=== PATIENT | male | born 1955 | race Caucasian/White ===

== ENCOUNTER → 2024-10-16 13:01 | Outpatient (BNVA) | payer OTHER, SELFPAY | PROVIDERS: Visit Provider Podiatrist Foot & Ankle Surgery | DX: M79.671 Pain in right foot (principal); M79.672 Pain in left foot; M77.41 Metatarsalgia, right foot; M77.42 Metatarsalgia, left foot; M20.21 Hallux rigidus, right foot; M20.22 Hallux rigidus, left foot; L60.3 Nail dystrophy; M79.89 Other specified soft tissue disorders | CPT/HCPCS: 73630; 99204 ==

== ENCOUNTER → 2024-10-22 14:47 | Outpatient (BNVA) | payer OTHER, SELFPAY | PROVIDERS: Visit Provider Internal Medicine Cardiovascular Disease | DX: R07.9 Chest pain, unspecified (principal); I44.0 Atrioventricular block, first degree; I45.0 Right fascicular block | CPT/HCPCS: 93005 ==

== ENCOUNTER → 2024-11-07 10:25 | Outpatient (BNVA) | payer OTHER, SELFPAY | PROVIDERS: Visit Provider Podiatrist Foot & Ankle Surgery | DX: M79.89 Other specified soft tissue disorders (principal); M79.672 Pain in left foot; M77.41 Metatarsalgia, right foot; M77.42 Metatarsalgia, left foot; M20.21 Hallux rigidus, right foot; M20.22 Hallux rigidus, left foot; L60.3 Nail dystrophy | CPT/HCPCS: J9999 ==

== ENCOUNTER 2024-11-22 09:47 | Outpatient (CLI) | payer OTHER, SELFPAY ==
--- NOTE | 2024-11-22 11:15 | USCV_ITS ---
Jm Lawrence Age: 69 Gender: M : 1955 Exam Date: 11/22/2024 11:18 Ordering Phys: Sajan Hurley MD ([email or web address]) Technologist: Braulio García [place] [facility] [place]: sob BP: 108 / 70 HR: 63 Rhythm: Sinus Technical Quality: Adequate MEASUREMENTS (Male / Female) Normal Values 2D ECHO LV Diastolic Diameter PLAX 4.2 cm 4.2 - 5.9 / 3.9 - 5.3 cm IVS Diastolic Thickness 1.7 cm 0.6 - 1.0 / 0.6 - 0.9 cm IVS Systolic Thickness 1.5 cm LVPW Diastolic Thickness 0.9 cm 0.6 - 1.0 / 0.6 - 0.9 cm LVPW Systolic Thickness 1.3 cm LVOT Diameter 2.1 cm LV Ejection Fraction 2D Teich 66.3 % LV Ejection Fraction MOD 4C 55.8 % LV Ejection Fraction MOD 2C 53.2 % LV Ejection Fraction 2C AL 53.2 % LA Diameter 3.5 cm RA Systolic Volume 4C AL 46.7 ml RA Systolic Volume 4C MOD 45.3 ml LA Sys Volume AL 60.3 cm cubed LA Sys Volume Index AL 26.7 cm cubed/m squared Aorta at Sinotubular Diameter 2.9 cm IVC Diameter 1.5 cm M-MODE LA Ao Ratio MM 1.3 AV Cusp Separation MM 2.8 cm DOPPLER AV Peak Velocity 108.0 cm/s LVOT Peak Velocity 98.0 cm/s AV Area Cont Eq vti 3.5 cm squared AV Area Cont Eq pk 3.2 cm squared MV Peak Velocity 84.0 cm/s MV Area PHT 7.6 cm squared Mitral E to A Ratio 0.7 TV Peak Velocity 213.5 cm/s TR Peak Velocity 241.0 cm/s TR Peak Gradient 23.2 mmHg TR Mean Velocity 199.0 cm/s TR Mean Gradient 16.6 mmHg TR Velocity Time Integral 76.8 cm PV Peak Velocity 72.0 cm/s RV Ejection Time 0.3 s FINDINGS Left Ventricle Normal left ventricular size, systolic function and wall thickness, with no regional wall motion abnormalities. Left ventricular ejection fraction is estimated at 55 %. Grade I/IV diastolic dysfunction (abnormal relaxation filling pattern), normal to mildly elevated filling pressures. Right Ventricle The right ventricle is normal in size and function. Right Atrium The right atrium is normal in size. Left Atrium The left atrium is normal in size. Mitral Valve Mildly thickened mitral valve. No mitral valve stenosis. Mild mitral valve regurgitation. Aortic Valve Mild aortic valve calcification. No aortic valve stenosis. Trace aortic valve regurgitation. Tricuspid Valve Structurally normal tricuspid valve without significant stenosis or regurgitation. Pulmonary artery systolic pressure is normal. Pulmonic Valve Structurally normal pulmonic valve without significant stenosis. There is no pulmonic regurgitation. Pericardium Normal pericardium without effusion. Aorta Normal ascending aorta dimension. IVC The inferior vena cava appears normal. CONCLUSIONS Normal left ventricular size, systolic function and wall thickness, with no regional wall motion abnormalities. Left ventricular ejection fraction is estimated at 55 %. Grade I/IV diastolic dysfunction (abnormal relaxation filling pattern), normal to mildly elevated filling pressures. Mildly thickened mitral valve. No mitral valve stenosis. Mild mitral valve regurgitation. There is no pericardial effusion. Right atrial pressure is around 5 mm of mercury. Sajan Hurley MD (Electronically Signed) Final Date: 01 December 2024 17:33 S
== END 2024-11-22 09:48 | disposition home or self-care (01) ==
LOC: RAD 09:49
PROVIDERS: Visit Provider Internal Medicine Cardiovascular Disease
DX: R06.02 Shortness of breath (principal); R93.1 Abnormal findings on diagnostic imaging of heart and coronary circulation; I34.0 Nonrheumatic mitral (valve) insufficiency; I35.8 Other nonrheumatic aortic valve disorders
CPT/HCPCS: 93306